=== PATIENT | male | born 1975 | race Caucasian/White ===

== ENCOUNTER 2023-01-03 20:11 | Emergency (ER) | payer OTHER ==
[~2023-01-03] VITALS: Ht 185.4 cm; Wt 81.6 kg
[2023-01-03 21:46] LABS: HEMATOCRIT 38.5 % (39.0-48.0); HEMOGLOBIN 12.4 g/dL (13-16.00); MEAN CORPUSCULAR HGB CONC 32.2 g/dl (32.0-36.0); PLATELET COUNT 191 K/uL (150-450); RED BLOOD COUNT 4.59 M/uL (4.00-6.00); RED CELL DISTRIBUTION WIDTH 14.6 % (11.5-14.5)
[2023-01-03 22:08] LABS: CALCIUM 8.8 mg/dL (8.5-10.1); CREATININE SERUM 0.82 mg/dL (0.70-1.30); GFR 100.71; POTASSIUM 3.62 mEq/L (3.5-5.1)
== END 2023-01-03 22:41 | disposition home or self-care (01) ==
LOC: ER 20:12
PROVIDERS: General Practice
DX: R51.9 Headache, unspecified (principal); M54.2 Cervicalgia